=== PATIENT | male | born 1950 | race Caucasian/White ===

== ENCOUNTER 2017-05-20 10:12 | Inpatient (IN) | payer OTHER ==
[~2017-05-20] VITALS: Ht 167.6 cm; Wt 102.3 kg
[2017-05-20 11:15] LABS: BASOPHIL COUNT 0.1 K/uL (0-0.1); EOSINOPHIL (%) 0.7 % (0-5); EOSINOPHIL COUNT 0.1 K/uL (0-0.3); HEMATOCRIT 45.2 % (38.0-50.0); IMMATURE GRANULOCYTE (%) 1.9 % (0.0-0.7); IMMATURE GRANULOCYTE COUNT 0.3 K/uL; LYMPHOCYTE COUNT 1.8 K/uL (1.0-2.8); MCHC 31.4 G/DL (30.0-36.0); MCV 86.1 FL (86-99); MEAN PLAT.VOLUME 11.4 uM^3 (9.0-12.4); MONOCYTE (%) 8.1 % (3-12); MONOCYTE COUNT 1.1 K/uL (0-0.8); NEUTROPHIL (%) 74.9 % (45-76); PLATELET COUNT 336 K/uL (156-360); RBC DIS.WIDTH-CV 14.6 % (11.8-14.6); RBC DIS.WIDTH-SD 46.1 % (39-53); RED BLOOD COUNT 5.25 M/uL (4.00-5.50); WHITE BLOOD COUNT 13.4 K/uL (4.1-10.2)
[2017-05-20 11:19] LABS: ADD MIUA? YES; BILIRUBIN NEGATIVE; BLOOD NEGATIVE; COLOR YELLOW ((YELLOW)); GLUCOSE (STRIP) NEGATIVE; KETONES NEGATIVE; LEUKOCYTES NEGATIVE; NITRITE NEGATIVE; PROTEIN (STRIP) 100; SPECIFIC GRAVITY 1.011 (1.000-1.030)
[2017-05-20 11:23] LABS: CHLORIDE 97 mEq/L (99-109); POTASSIUM 4.4 mEq/L (3.7-5.4); SODIUM 136 mEq/L (136-147)
[2017-05-20 11:24] LABS: BACTERIA NONE SEEN /HPF; EPITHELIAL CELLS NONE SEEN /HPF; HYALINE CASTS 0-5 /LPF; MUCUS NONE SEEN /LPF; RED BLOOD CELLS 0-5 /HPF (0-5); UCUL ADDED? NO; WHITE BLOOD CELLS 0-5 /HPF (0-5)
[2017-05-20 11:25] LABS: GLUCOSE 180 mg/dL (70-99)
[2017-05-20 11:26] LABS: ANION GAP 9 MEQ/L (2-14)
[2017-05-20 11:28] LABS: GFR ESTIMATE (CALCULATED) > 59 mL/min/
[2017-05-20 11:30] LABS: UREA NITROGEN (BUN) 12 mg/dL (9-23)
[2017-05-20] MEDS ORDERED: MONTELUKAST SOD10 MG PO (13:24)
[2017-05-20] MEDS ORDERED: GLIMEPIRIDE2 MG PO ×2 (13:24→13:28)
[2017-05-20] MEDS ORDERED: ELIQUIS5 MG PO (13:25)
[2017-05-20] MEDS ORDERED: METFORMIN HCL500 MG PO (13:25)
[2017-05-20 13:26] LABS: INTER. NORMALIZED RATIO 1.6; PROTHROMBIN TIME 17.9 SEC (10.2-12.9)
[2017-05-20] MEDS ORDERED: LISINOPRIL40 MG PO (13:26)
[2017-05-20] MEDS ORDERED: METOPROLOL SUC100 MG PO (13:26)
[2017-05-20] MEDS ORDERED: LANTUS 10100 UNITS/ SC (13:26)
[2017-05-20] MEDS ORDERED: ATORVASTATIN CA10 MG PO (13:27)
[2017-05-20] MEDS ORDERED: MIRALAX17 GM PO (13:29)
[2017-05-20] MEDS ORDERED: VITAMIN D-32000 UNI2 PO (13:30)
[2017-05-20] MEDS ORDERED: MULTIVITAMIN1 EAC2 PO (13:30)
[2017-05-20] MEDS ORDERED: flovent inhaler IH (13:32)
[2017-05-20 13:35] LABS: TOTAL BILIRUBIN 0.9 mg/dL (0.0-1.0)
[2017-05-20 13:36] LABS: ALKALINE PHOSPHATASE 138 IU/L (3-129)
[2017-05-20 13:38] LABS: DIRECT BILIRUBIN 0.5 mg/dL (0.0-0.3)
[2017-05-20 15:39] VITALS: BP 174/75
[2017-05-20 17:41] LABS: POINT-OF-CARE METER ID UU14117124
[2017-05-20 20:48] VITALS: BP 133/59
[2017-05-20 21:31] LABS: POINT-OF-CARE METER ID UU14117124
[2017-05-20 23:43] VITALS: BP 133/58
[2017-05-21 04:28] VITALS: BP 156/67
[2017-05-21 06:03] LABS: POINT-OF-CARE METER ID UU14117124
[2017-05-21 06:11] LABS: HEMATOCRIT 42.7 % (38.0-50.0); MCH 26.6 PG (29.0-34.0); MCHC 30.4 G/DL (30.0-36.0); MCV 87.3 FL (86-99); MEAN PLAT.VOLUME 11.3 uM^3 (9.0-12.4); PLATELET COUNT 295 K/uL (156-360); RBC DIS.WIDTH-CV 14.7 % (11.8-14.6); RBC DIS.WIDTH-SD 47.4 % (39-53); RED BLOOD COUNT 4.89 M/uL (4.00-5.50); WHITE BLOOD COUNT 11.1 K/uL (4.1-10.2)
[2017-05-21 06:35] LABS: ANION GAP 10 MEQ/L (2-14); CHLORIDE 98 MEQ/L (99-109); GFR ESTIMATE (CALCULATED) > 59 mL/min/; GLUCOSE 185 mg/dL (70-99); POTASSIUM 4.6 MEQ/L (3.7-5.4); SAMPLE HEMOLYSIS CHECK 0; SAMPLE ICTERIC CHECK 0; SAMPLE LIPEMIA CHECK 0; SODIUM 138 MEQ/L (136-147); UREA NITROGEN (BUN) 12 mg/dL (9-23)
[2017-05-21 07:10] VITALS: BP 139/68
[2017-05-21 11:32] VITALS: BP 101/63
[2017-05-21 12:01] LABS: POINT-OF-CARE METER ID UU14117124
[2017-05-21 16:27] VITALS: BP 125/58
[2017-05-21 16:33] LABS: POINT-OF-CARE METER ID UU14117124
[2017-05-21 20:02] VITALS: BP 110/55
[2017-05-21 22:00] LABS: POINT-OF-CARE METER ID UU14149397
[2017-05-21 23:32] VITALS: BP 116/57
[2017-05-22 03:56] VITALS: BP 124/61
[2017-05-22 06:05] LABS: BASOPHIL COUNT 0.1 K/uL (0-0.1); EOSINOPHIL (%) 1.2 % (0-5); EOSINOPHIL COUNT 0.1 K/uL (0-0.3); HEMATOCRIT 38.7 % (38.0-50.0); IMMATURE GRANULOCYTE (%) 2.4 % (0.0-0.7); IMMATURE GRANULOCYTE COUNT 0.2 K/uL; INSTRUMENT ABS NEUTROPHIL CT 4.8 K/uL; LYMPHOCYTE COUNT 1.4 K/uL (1.0-2.8); MCH 27.8 PG (29.0-34.0); MCHC 31.3 G/DL (30.0-36.0); MCV 88.8 FL (86-99); MEAN PLAT.VOLUME 11.2 uM^3 (9.0-12.4); MONOCYTE (%) 10.1 % (3-12); MONOCYTE COUNT 0.7 K/uL (0-0.8); NEUTROPHIL (%) 65.7 % (45-76); NEUTROPHIL COUNT 4.8 K/uL (1.8-6.4); PLATELET COUNT 256 K/uL (156-360); RBC DIS.WIDTH-CV 14.9 % (11.8-14.6); RBC DIS.WIDTH-SD 48.9 % (39-53); RED BLOOD COUNT 4.36 M/uL (4.00-5.50); WHITE BLOOD COUNT 7.2 K/uL (4.1-10.2)
[2017-05-22 06:53] LABS: ANION GAP 7 MEQ/L (2-14); CHLORIDE 101 MEQ/L (99-109); GFR ESTIMATE (CALCULATED) > 59 mL/min/; POTASSIUM 4.3 MEQ/L (3.7-5.4); SAMPLE HEMOLYSIS CHECK 0; SAMPLE ICTERIC CHECK 0; SAMPLE LIPEMIA CHECK 0; SODIUM 141 MEQ/L (136-147); UREA NITROGEN (BUN) 15 mg/dL (9-23)
[2017-05-22 06:59] LABS: GLUCOSE 100 mg/dL (70-99)
[2017-05-22 07:11] LABS: POINT-OF-CARE METER ID UU14208753
[2017-05-22 07:59] VITALS: BP 142/65
[2017-05-22 11:30] LABS: POINT-OF-CARE METER ID UU14208753
[2017-05-22 11:42] VITALS: BP 134/71
[2017-05-22] MEDS ORDERED: BACTRIM,SEPT1 TABLET PO (14:52)
[2017-05-22] MEDS ORDERED: AUGMENTIN875 MG PO (14:52)
== END 2017-05-22 15:47 | disposition home or self-care (01) | DRG 571 ==
LOC: EME 10:12 → 3EAST 12:59 → EDOF 12:59 → ENRESERV 13:00 → 3EAST 15:23
PROVIDERS: Hospitalist; Internal Medicine; Physician Assistant
DX: L02.214 Cutaneous abscess of groin (principal); E11.65 Type 2 diabetes mellitus with hyperglycemia; E78.5 Hyperlipidemia, unspecified; I11.0 Hypertensive heart disease with heart failure; I50.20 Unspecified systolic (congestive) heart failure; L03.314 Cellulitis of groin; I48.2 Chronic atrial fibrillation; I25.10 Atherosclerotic heart disease of native coronary artery without angina pectoris; F17.210 Nicotine dependence, cigarettes, uncomplicated; E66.9 Obesity, unspecified; B35.9 Dermatophytosis, unspecified; R79.89 Other specified abnormal findings of blood chemistry; K76.0 Fatty (change of) liver, not elsewhere classified; K57.30 Diverticulosis of large intestine without perforation or abscess without bleeding; I27.20 Pulmonary hypertension, unspecified; L03.311 Cellulitis of abdominal wall; I70.8 Atherosclerosis of other arteries; I70.0 Atherosclerosis of aorta; D68.9 Coagulation defect, unspecified; Z99.81 Dependence on supplemental oxygen; Z79.4 Long term (current) use of insulin; I25.2 Old myocardial infarction; Z68.36 Body mass index [BMI] 36.0-36.9, adult
CPT/HCPCS: 74177; 80048; 80076; 80202; 81003; 82948; 83605; 85025; 85027; 85610; 87040; 87070; 87075; 87076; 87185; 87205; 93005; 94640; 94640 76; 94799; 99202; 99281; 99285; J1815; J2543; J3370; J7030; J7050

== ENCOUNTER 2017-08-04 09:11 | Inpatient (IN) | payer OTHER ==
[2017-08-04] VITALS (7 sets, daily range): BP systolic 101–137; BP diastolic 61–83
[~2017-08-04] VITALS: Ht 167.6 cm; Wt 96.0 kg
[~2017-08-04 09:11] MED LIST: ATORVASTATIN CA10 MG PO; AUGMENTIN875 MG PO; BACTRIM,SEPT1 TABLET PO; ELIQUIS5 MG PO; FLOVENT 22120 INHALA IH; GLIMEPIRIDE2 MG PO; LANTUS 10100 UNITS/ SC; LISINOPRIL40 MG PO; METFORMIN HCL500 MG PO; METOPROLOL SUC100 MG PO; MIRALAX17 GM PO; MONTELUKAST SOD10 MG PO; MULTIVITAMIN1 EAC2 PO; VITAMIN D-32000 UNI2 PO
[2017-08-04 10:17] LABS: HEMATOCRIT 53.9 % (38.0-50.0); HEMOGLOBIN 16.9 G/DL (12.5-16.6); MCH 28.6 PG (29.0-34.0); MCHC 31.4 G/DL (30.0-36.0); MCV 91.4 FL (86-99); PLATELET COUNT 281 K/uL (156-360); RBC DIS.WIDTH-CV 18.6 % (11.8-14.6); RBC DIS.WIDTH-SD 58.7 % (39-53); WHITE BLOOD COUNT 10.2 K/uL (4.1-10.2)
[2017-08-04 10:21] LABS: CHLORIDE 100 mEq/L (99-109)
[2017-08-04 10:22] LABS: SODIUM 136 mEq/L (136-147)
[2017-08-04 10:23] LABS: GLUCOSE 101 mg/dL (70-99)
[2017-08-04 10:27] LABS: CREATININE 1.7 mg/dL (0.6-1.3); GFR ESTIMATE (CALCULATED) 43 mL/min/ (58.99-99999)
[2017-08-04 10:28] LABS: UREA NITROGEN (BUN) 74 mg/dL (9-23)
[2017-08-04 10:30] LABS: POTASSIUM 6.5 mEq/L (3.7-5.4)
[2017-08-04 11:56] LABS: INTER. NORMALIZED RATIO 2.1
[2017-08-04 11:58] LABS: MAGNESIUM 2.5 mg/dL (1.3-2.7); PTT 34.5 SEC (25-37)
[2017-08-04 12:10] LABS: TROP-I INTERPRETATION NEGATIVE
[2017-08-04 13:00] LABS: THYROTROPIN (TSH) 3.6 MIU/L (0.4-5.5)
[2017-08-04 14:08] LABS: ALBUMIN 3.3 g/dL (3.2-4.8); CHLORIDE 106 mEq/L (99-109); POTASSIUM 5.7 mEq/L (3.7-5.4); SODIUM 139 mEq/L (136-147)
[2017-08-04 14:09] LABS: GLUCOSE 79 mg/dL (70-99)
[2017-08-04 14:11] LABS: TOTAL PROTEIN 6.7 g/dL (6.4-8.3)
[2017-08-04 14:13] LABS: CREATININE 1.7 mg/dL (0.6-1.3); GFR ESTIMATE (CALCULATED) 43 mL/min/ (58.99-99999); TOTAL BILIRUBIN 1.4 mg/dL (0.0-1.0)
[2017-08-04 14:14] LABS: ALKALINE PHOSPHATASE 101 IU/L (3-129); UREA NITROGEN (BUN) 70 mg/dL (9-23)
[2017-08-04 14:16] LABS: AST (GOT) 26 IU/L (2-34); DIRECT BILIRUBIN 0.8 mg/dL (0.0-0.3)
[2017-08-04 14:17] LABS: ALT (GPT) 21 IU/L (3-49)
[2017-08-04] MEDS ORDERED: AMARYL2 MG PO (16:27)
[2017-08-04] MEDS ORDERED: STIOLTO RESPIMAT4 GM IH (16:31)
[2017-08-04] MEDS ORDERED: PROAIR HFA8.5 GM IH (16:31)
[2017-08-04 18:51] LABS: TROP-I INTERPRETATION NEGATIVE; TROPONIN-I 0.12 ng/mL (0.0-0.30)
[2017-08-04 18:54] LABS: CHLORIDE 103 MEQ/L (99-109); CREATININE 1.8 MG/DL (0.6-1.3); GFR ESTIMATE (CALCULATED) 40 mL/min/ (58.99-99999); POTASSIUM 5.6 MEQ/L (3.7-5.4); SODIUM 138 MEQ/L (136-147); UREA NITROGEN (BUN) 72 mg/dL (9-23)
[2017-08-04 19:19] LABS: GLUCOSE 106 mg/dL (70-99)
[2017-08-05] VITALS (23 sets, daily range): BP systolic 77–114; BP diastolic 51–68
[2017-08-05 01:45] LABS: TROP-I INTERPRETATION NEGATIVE
[2017-08-05 05:55] LABS: CHLORIDE 104 MEQ/L (99-109); CREATININE 1.8 MG/DL (0.6-1.3); GFR ESTIMATE (CALCULATED) 40 mL/min/ (58.99-99999); GLUCOSE 120 mg/dL (70-99); SODIUM 137 MEQ/L (136-147); UREA NITROGEN (BUN) 73 mg/dL (9-23)
[2017-08-06] VITALS (24 sets, daily range): BP systolic 78–113; BP diastolic 50–69
[2017-08-06 06:16] LABS: CHLORIDE 105 MEQ/L (99-109); CREATININE 2.1 MG/DL (0.6-1.3); GFR ESTIMATE (CALCULATED) 34 mL/min/ (58.99-99999); GLUCOSE 116 mg/dL (70-99); POTASSIUM 4.9 MEQ/L (3.7-5.4); SODIUM 139 MEQ/L (136-147); UREA NITROGEN (BUN) 77 mg/dL (9-23)
[2017-08-07] VITALS (20 sets, daily range): BP systolic 65–131; BP diastolic 41–73
[2017-08-07 04:50] LABS: BASOPHIL (%) 0.5 % (0-1); EOSINOPHIL (%) 0.6 % (0-5); EOSINOPHIL COUNT 0.1 K/uL (0-0.3); HEMATOCRIT 46.1 % (38.0-50.0); IMMATURE GRANULOCYTE (%) 0.8 % (0.0-0.7); LYMPHOCYTE (%) 11.7 % (15-42); MCHC 31.2 G/DL (30.0-36.0); MCV 92.8 FL (86-99); MONOCYTE (%) 8.6 % (3-12); MONOCYTE COUNT 0.8 K/uL (0-0.8); NEUTROPHIL (%) 77.8 % (45-76); NEUTROPHIL COUNT 6.8 K/uL (1.8-6.4); NRBC (%) 0.2 /100 WBC (0-0); RBC DIS.WIDTH-CV 17.9 % (11.8-14.6); RBC DIS.WIDTH-SD 60.3 % (39-53); RED BLOOD COUNT 4.97 M/uL (4.00-5.50); WHITE BLOOD COUNT 8.7 K/uL (4.1-10.2)
[2017-08-07 04:51] LABS: HEMOGLOBIN 14.4 G/DL (12.5-16.6)
[2017-08-07 05:00] LABS: CHLORIDE 104 mEq/L (99-109); POTASSIUM 4.9 mEq/L (3.7-5.4); SODIUM 139 mEq/L (136-147)
[2017-08-07 05:01] LABS: GLUCOSE 117 mg/dL (70-99)
[2017-08-07 05:05] LABS: CREATININE 1.8 mg/dL (0.6-1.3); GFR ESTIMATE (CALCULATED) 40 mL/min/ (58.99-99999)
[2017-08-07 05:06] LABS: UREA NITROGEN (BUN) 71 mg/dL (9-23)
[2017-08-07 06:09] LABS: PLAT.SUFFICIENCY ADEQUATE
[2017-08-07 06:10] LABS: PLATELET COUNT 179 K/uL (156-360)
[2017-08-08] VITALS (23 sets, daily range): BP systolic 92–129; BP diastolic 55–93
[2017-08-08 08:37] LABS: CHLORIDE 101 MEQ/L (99-109); POTASSIUM 4.6 MEQ/L (3.7-5.4); SODIUM 141 MEQ/L (136-147)
[2017-08-08 08:45] LABS: CREATININE 1.6 MG/DL (0.6-1.3); GFR ESTIMATE (CALCULATED) 46 mL/min/ (58.99-99999); GLUCOSE 127 mg/dL (70-99); UREA NITROGEN (BUN) 62 mg/dL (9-23)
[2017-08-09] VITALS (22 sets, daily range): BP systolic 86–118; BP diastolic 51–79
[2017-08-09 11:19] LABS: DIGOXIN 0.5 ng/mL (0.8-2.0)
[2017-08-09 11:28] LABS: CHLORIDE 98 MEQ/L (99-109); CREATININE 1.3 MG/DL (0.6-1.3); GFR ESTIMATE (CALCULATED) 59 mL/min/ (58.99-99999); GLUCOSE 182 mg/dL (70-99); POTASSIUM 4.6 MEQ/L (3.7-5.4); SODIUM 144 MEQ/L (136-147); UREA NITROGEN (BUN) 57 mg/dL (9-23)
[2017-08-10] VITALS (12 sets, daily range): BP systolic 90–131; BP diastolic 47–80
[2017-08-10 06:20] LABS: CHLORIDE 98 MEQ/L (99-109); CREATININE 1.2 MG/DL (0.6-1.3); GFR ESTIMATE (CALCULATED) > 59 mL/min/ (58.99-99999); GLUCOSE 125 mg/dL (70-99); POTASSIUM 4.3 MEQ/L (3.7-5.4); SODIUM 144 MEQ/L (136-147); UREA NITROGEN (BUN) 53 mg/dL (9-23)
[2017-08-11 04:27] VITALS: BP 103/61
[2017-08-11 07:10] VITALS: BP 107/69
[2017-08-11 10:45] LABS: CARBON DIOXIDE (BICARBONATE) > 40.0 MEQ/L (20-31); CHLORIDE 91 MEQ/L (99-109); CREATININE 1.2 MG/DL (0.6-1.3); GFR ESTIMATE (CALCULATED) > 59 mL/min/ (58.99-99999); GLUCOSE 189 mg/dL (70-99); POTASSIUM 4.8 MEQ/L (3.7-5.4); SODIUM 145 MEQ/L (136-147); UREA NITROGEN (BUN) 50 mg/dL (9-23)
[2017-08-11 11:50] VITALS: BP 119/71
[2017-08-11 12:05] VITALS: BP 119/71
[2017-08-11 16:50] VITALS: BP 125/83
[2017-08-11 20:35] VITALS: BP 128/83
[2017-08-12 00:30] VITALS: BP 128/58
[2017-08-12 04:48] VITALS: BP 132/79
[2017-08-12 06:02] LABS: CHLORIDE 91 MEQ/L (99-109); CREATININE 1.3 MG/DL (0.6-1.3); GFR ESTIMATE (CALCULATED) 59 mL/min/ (58.99-99999); GLUCOSE 122 mg/dL (70-99); POTASSIUM 4.2 MEQ/L (3.7-5.4); SODIUM 145 MEQ/L (136-147); UREA NITROGEN (BUN) 52 mg/dL (9-23)
[2017-08-12 06:03] LABS: CARBON DIOXIDE (BICARBONATE) > 40.0 MEQ/L (20-31)
[2017-08-12 08:22] VITALS: BP 140/83
[2017-08-12 15:47] VITALS: BP 120/73
[2017-08-12 16:19] VITALS: BP 120/73
[2017-08-12 20:20] VITALS: BP 134/86
[2017-08-13] VITALS (9 sets, daily range): BP systolic 108–144; BP diastolic 65–87
[2017-08-13 05:59] LABS: CHLORIDE 91 MEQ/L (99-109); GFR ESTIMATE (CALCULATED) > 59 mL/min/ (58.99-99999); GLUCOSE 136 mg/dL (70-99); POTASSIUM 4.3 MEQ/L (3.7-5.4); SODIUM 145 MEQ/L (136-147); UREA NITROGEN (BUN) 47 mg/dL (9-23)
[2017-08-13 06:03] LABS: CARBON DIOXIDE (BICARBONATE) > 40.0 MEQ/L (20-31)
[2017-08-13 06:32] LABS: DIGOXIN 0.7 ng/mL (0.8-2.0)
[2017-08-13 08:20] LABS: BICARBONATE 51.9 mEq/L (22-26); CARBOXY HGB 2.8 % (0-5); COMMENTS - BLOOD GASES A+C+; DEVICE NC; METHEMOGLOBIN 1.6 % (0-1.5); O2 FLOW 2 L/MIN; PCO2 94 mm Hg (35-45); PO2 76 mm Hg (80-100); SITE RR; TOTAL RESP RATE 16 resp/min; pH 7.35 (7.35-7.45)
[2017-08-13 15:49] LABS: BASE EXCESS 17.6 mEq/L (-3 to +3); BICARBONATE 53.2 mEq/L (22-26); CARBOXY HGB 2.6 % (0-5); COMMENTS - BLOOD GASES A+C+; DEVICE NC; METHEMOGLOBIN 1.4 % (0-1.5); O2 FLOW 5 L/MIN; PCO2 127 mm Hg (35-45); PO2 79 mm Hg (80-100); SITE RR
[2017-08-13 15:50] LABS: pH 7.23 (7.35-7.45)
[2017-08-13 16:14] LABS: BASOPHIL (%) 0.6 % (0-1); BASOPHIL COUNT 0.1 K/uL (0-0.1); EOSINOPHIL (%) 0.5 % (0-5); HEMATOCRIT 57.7 % (38.0-50.0); IMMATURE GRANULOCYTE (%) 1.4 % (0.0-0.7); LYMPHOCYTE (%) 7.2 % (15-42); LYMPHOCYTE COUNT 0.6 K/uL (1.0-2.8); MCH 28.5 PG (29.0-34.0); MCHC 29.1 G/DL (30.0-36.0); MONOCYTE COUNT 0.3 K/uL (0-0.8); NEUTROPHIL (%) 87.3 % (45-76); NEUTROPHIL COUNT 7.5 K/uL (1.8-6.4); PLATELET COUNT 186 K/uL (156-360); RBC DIS.WIDTH-CV 18.2 % (11.8-14.6); RBC DIS.WIDTH-SD 62.6 % (39-53); RED BLOOD COUNT 5.89 M/uL (4.00-5.50); WHITE BLOOD COUNT 8.6 K/uL (4.1-10.2)
[2017-08-13 16:18] LABS: CHLORIDE 92 MEQ/L (99-109); CREATININE 1.4 MG/DL (0.6-1.3); GFR ESTIMATE (CALCULATED) 54 mL/min/ (58.99-99999); GLUCOSE 192 mg/dL (70-99); SODIUM 142 MEQ/L (136-147); UREA NITROGEN (BUN) 50 mg/dL (9-23)
[2017-08-13 16:19] LABS: CARBON DIOXIDE (BICARBONATE) > 40.0 MEQ/L (20-31)
[2017-08-13 16:23] LABS: HEMOGLOBIN 16.8 G/DL (12.5-16.6)
[2017-08-13 17:55] LABS: BASE EXCESS 17.4 mEq/L (-3 to +3); BICARBONATE 51.2 mEq/L (22-26); CARBOXY HGB 2.3 % (0-5); METHEMOGLOBIN 1.5 % (0-1.5)
[2017-08-13 17:56] LABS: COMMENTS - BLOOD GASES A+C+; DEVICE MASK VENT; FI02 30 %; MODE SPONT NIV; PCO2 109 mm Hg (35-45); PEEP 5 CM/H20; PO2 44 mm Hg (80-100); PRES. SUPPORT 10 CM/H2O; SITE LR; TOTAL RESP RATE 16 resp/min; pH 7.28 (7.35-7.45)
[2017-08-13 21:56] LABS: BASE EXCESS 19.4 mEq/L (-3 to +3); BICARBONATE 52.9 mEq/L (22-26); CARBOXY HGB 2.7 % (0-5); METHEMOGLOBIN 1.4 % (0-1.5); PCO2 110 mm Hg (35-45)
[2017-08-13 21:57] LABS: DEVICE VENT; FI02 40 %; MODE SPON; PEEP 5 CM/H20; PO2 66 mm Hg (80-100); PRES. SUPPORT 10 CM/H2O; SITE LR; TOTAL RESP RATE 15 resp/min; pH 7.29 (7.35-7.45)
[2017-08-14] VITALS (23 sets, daily range): BP systolic 92–133; BP diastolic 52–81
[2017-08-14 06:02] LABS: BASE EXCESS 21.5 mEq/L (-3 to +3); BICARBONATE 53.6 mEq/L (22-26); CARBOXY HGB 2.9 % (0-5); METHEMOGLOBIN 1.4 % (0-1.5); PO2 57 mm Hg (80-100); pH 7.35 (7.35-7.45)
[2017-08-14 06:03] LABS: COMMENTS - BLOOD GASES C+; DEVICE VENT; FI02 30 %; MODE SPON; PCO2 97 mm Hg (35-45); PEEP 5 CM/H20; PRES. SUPPORT 10 CM/H2O; SITE LB; TOTAL RESP RATE 16 resp/min
[2017-08-14 06:35] LABS: BASOPHIL (%) 0.1 % (0-1); EOSINOPHIL (%) 0 % (0-5); HEMATOCRIT 51.6 % (38.0-50.0); HEMOGLOBIN 14.9 G/DL (12.5-16.6); IMMATURE GRANULOCYTE (%) 1.2 % (0.0-0.7); LYMPHOCYTE (%) 7.4 % (15-42); LYMPHOCYTE COUNT 0.5 K/uL (1.0-2.8); MCH 27.9 PG (29.0-34.0); MCHC 28.9 G/DL (30.0-36.0); MCV 96.6 FL (86-99); MONOCYTE (%) 5.6 % (3-12); MONOCYTE COUNT 0.4 K/uL (0-0.8); NEUTROPHIL (%) 85.7 % (45-76); NEUTROPHIL COUNT 5.9 K/uL (1.8-6.4); PLATELET COUNT 180 K/uL (156-360); RBC DIS.WIDTH-CV 17.5 % (11.8-14.6); RBC DIS.WIDTH-SD 61.3 % (39-53); RED BLOOD COUNT 5.34 M/uL (4.00-5.50); WHITE BLOOD COUNT 6.9 K/uL (4.1-10.2)
[2017-08-14 07:12] LABS: CHLORIDE 92 MEQ/L (99-109); CREATININE 1.3 MG/DL (0.6-1.3); GFR ESTIMATE (CALCULATED) 59 mL/min/ (58.99-99999); GLUCOSE 170 mg/dL (70-99); POTASSIUM 4.7 MEQ/L (3.7-5.4); SODIUM 146 MEQ/L (136-147); UREA NITROGEN (BUN) 57 mg/dL (9-23)
[2017-08-14 07:40] LABS: CARBON DIOXIDE (BICARBONATE) > 40.0 MEQ/L (20-31)
[2017-08-14 07:41] LABS: MAGNESIUM 1.5 mg/dl (1.3-2.7)
[2017-08-15] VITALS (22 sets, daily range): BP systolic 82–135; BP diastolic 56–89
[2017-08-16] VITALS (11 sets, daily range): BP systolic 100–165; BP diastolic 62–81
[2017-08-16 10:35] LABS: CHLORIDE 89 MEQ/L (99-109); GFR ESTIMATE (CALCULATED) > 59 mL/min/ (58.99-99999); GLUCOSE 131 mg/dL (70-99); POTASSIUM 4.4 MEQ/L (3.7-5.4); SODIUM 145 MEQ/L (136-147); UREA NITROGEN (BUN) 49 mg/dL (9-23)
[2017-08-16 10:38] LABS: CARBON DIOXIDE (BICARBONATE) > 40.0 MEQ/L (20-31)
[2017-08-17 04:33] VITALS: BP 156/82
[2017-08-17 05:59] LABS: BASOPHIL (%) 0.8 % (0-1); BASOPHIL COUNT 0.1 K/uL (0-0.1); EOSINOPHIL (%) 1.3 % (0-5); EOSINOPHIL COUNT 0.1 K/uL (0-0.3); HEMATOCRIT 50.4 % (38.0-50.0); IMMATURE GRANULOCYTE (%) 0.9 % (0.0-0.7); LYMPHOCYTE (%) 16.2 % (15-42); LYMPHOCYTE COUNT 1.4 K/uL (1.0-2.8); MCH 28.5 PG (29.0-34.0); MCHC 29.8 G/DL (30.0-36.0); MCV 95.6 FL (86-99); MONOCYTE (%) 7.5 % (3-12); MONOCYTE COUNT 0.7 K/uL (0-0.8); NEUTROPHIL (%) 73.3 % (45-76); NEUTROPHIL COUNT 6.4 K/uL (1.8-6.4); PLATELET COUNT 146 K/uL (156-360); RBC DIS.WIDTH-CV 16.7 % (11.8-14.6); RBC DIS.WIDTH-SD 58.5 % (39-53); RED BLOOD COUNT 5.27 M/uL (4.00-5.50); WHITE BLOOD COUNT 8.8 K/uL (4.1-10.2)
[2017-08-17 06:24] LABS: ALBUMIN 3.2 G/DL (3.2-4.8); ALKALINE PHOSPHATASE 116 IU/L (3-129); ALT (GPT) 29 IU/L (3-49); AST (GOT) 27 IU/L (2-34); CHLORIDE 86 MEQ/L (99-109); CREATININE 1.1 MG/DL (0.6-1.3); GFR ESTIMATE (CALCULATED) > 59 mL/min/ (58.99-99999); GLUCOSE 107 mg/dL (70-99); POTASSIUM 4.4 MEQ/L (3.7-5.4); SODIUM 145 MEQ/L (136-147); TOTAL BILIRUBIN 1.7 MG/DL (0.0-1.0); TOTAL PROTEIN 6.5 G/DL (6.4-8.3); UREA NITROGEN (BUN) 45 mg/dL (9-23)
[2017-08-17 06:26] LABS: CARBON DIOXIDE (BICARBONATE) > 40.0 MEQ/L (20-31)
[2017-08-17 07:18] VITALS: BP 149/79
[2017-08-17 12:00] VITALS: BP 177/98
[2017-08-17 14:38] LABS: APPEARANCE CLEAR ((CLEAR)); BILIRUBIN NEGATIVE; BLOOD SMALL; COLOR YELLOW ((YELLOW)); GLUCOSE (STRIP) NEGATIVE; KETONES NEGATIVE; LEUKOCYTES NEGATIVE; NITRITE NEGATIVE; PROTEIN (STRIP) NEGATIVE; SPECIFIC GRAVITY 1.006 (1.000-1.030); UROBILINOGEN 0.2 MG/DL (0.2-1.0)
[2017-08-17 15:25] LABS: BACTERIA NONE SEEN /HPF; EPITHELIAL CELLS NONE SEEN /HPF; MUCUS TRACE /LPF; RED BLOOD CELLS 0-5 /HPF (0-5); UCUL ADDED? NO; WHITE BLOOD CELLS 0-5 /HPF (0-5)
[2017-08-17 16:25] VITALS: BP 139/90
[2017-08-17 19:49] VITALS: BP 143/82
[2017-08-18] VITALS (7 sets, daily range): BP systolic 122–141; BP diastolic 70–82
[2017-08-18 05:11] LABS: BASOPHIL (%) 0.6 % (0-1); BASOPHIL COUNT 0.1 K/uL (0-0.1); EOSINOPHIL (%) 0.9 % (0-5); EOSINOPHIL COUNT 0.1 K/uL (0-0.3); HEMATOCRIT 49.8 % (38.0-50.0); HEMOGLOBIN 14.5 G/DL (12.5-16.6); LYMPHOCYTE (%) 10.8 % (15-42); MCH 27.8 PG (29.0-34.0); MCHC 29.1 G/DL (30.0-36.0); MCV 95.4 FL (86-99); MONOCYTE (%) 8.1 % (3-12); MONOCYTE COUNT 0.8 K/uL (0-0.8); NEUTROPHIL (%) 78.6 % (45-76); NEUTROPHIL COUNT 7.4 K/uL (1.8-6.4); PLATELET COUNT 157 K/uL (156-360); RBC DIS.WIDTH-CV 16.4 % (11.8-14.6); RBC DIS.WIDTH-SD 57.7 % (39-53); RED BLOOD COUNT 5.22 M/uL (4.00-5.50); WHITE BLOOD COUNT 9.4 K/uL (4.1-10.2)
[2017-08-18 05:46] LABS: ALBUMIN 3.2 G/DL (3.2-4.8); ALKALINE PHOSPHATASE 112 IU/L (3-129); ALT (GPT) 27 IU/L (3-49); AST (GOT) 26 IU/L (2-34); CHLORIDE 86 MEQ/L (99-109); CREATININE 1.1 MG/DL (0.6-1.3); GFR ESTIMATE (CALCULATED) > 59 mL/min/ (58.99-99999); GLUCOSE 82 mg/dL (70-99); POTASSIUM 4.2 MEQ/L (3.7-5.4); SODIUM 142 MEQ/L (136-147); TOTAL BILIRUBIN 1.5 MG/DL (0.0-1.0); TOTAL PROTEIN 6.5 G/DL (6.4-8.3); UREA NITROGEN (BUN) 43 mg/dL (9-23)
[2017-08-18 05:47] LABS: CARBON DIOXIDE (BICARBONATE) > 40.0 MEQ/L (20-31)
[2017-08-18 08:40] LABS: INTER. NORMALIZED RATIO 1.5
[2017-08-18 08:43] LABS: PTT 36.6 SEC (25-37)
[2017-08-18 10:51] LABS: TYPE OF FLUID THORACENTESIS
[2017-08-18 11:16] LABS: LACTATE DEHYDROGENASE 334 IU/L (20-246)
[2017-08-18 11:19] LABS: HEMOGLOBIN A1c (GLYCOHEMOGLOB) 6.3 % (Below 5.7)
[2017-08-18 11:27] LABS: APPEARANCE HAZY-YELLOW; BODY FLUID EOSINOPHILS 0 % (0-25); BODY FLUID RBC'S 7000 /MM^3 (0-100); BODY FLUID WBC'S 596 /MM^3 (0-500); MONONUCLEAR WBC'S 76 %; POLYNUCLEAR WBC'S 24 % (0-25)
[2017-08-18 11:41] LABS: BODY FLUID GLUCOSE 126 MG/DL; BODY FLUID LDH 83 IU/L; BODY FLUID PROTEIN < 3.0 G/DL
[2017-08-19] VITALS (7 sets, daily range): BP systolic 122–140; BP diastolic 75–94
[2017-08-19 06:37] LABS: BASOPHIL (%) 0.8 % (0-1); BASOPHIL COUNT 0.1 K/uL (0-0.1); EOSINOPHIL COUNT 0.1 K/uL (0-0.3); HEMATOCRIT 49.6 % (38.0-50.0); HEMOGLOBIN 14.5 G/DL (12.5-16.6); LYMPHOCYTE (%) 13.6 % (15-42); LYMPHOCYTE COUNT 1.1 K/uL (1.0-2.8); MCHC 29.2 G/DL (30.0-36.0); MCV 95.9 FL (86-99); MONOCYTE (%) 8.6 % (3-12); MONOCYTE COUNT 0.7 K/uL (0-0.8); NEUTROPHIL COUNT 6.3 K/uL (1.8-6.4); PLATELET COUNT 159 K/uL (156-360); RBC DIS.WIDTH-CV 16.7 % (11.8-14.6); RBC DIS.WIDTH-SD 59.1 % (39-53); RED BLOOD COUNT 5.17 M/uL (4.00-5.50); WHITE BLOOD COUNT 8.4 K/uL (4.1-10.2)
[2017-08-19 07:16] LABS: CHLORIDE 88 MEQ/L (99-109); CREATININE 0.9 MG/DL (0.6-1.3); GFR ESTIMATE (CALCULATED) > 59 mL/min/ (58.99-99999); GLUCOSE 122 mg/dL (70-99); POTASSIUM 4.5 MEQ/L (3.7-5.4); SODIUM 143 MEQ/L (136-147); UREA NITROGEN (BUN) 41 mg/dL (9-23)
[2017-08-19 07:22] LABS: CARBON DIOXIDE (BICARBONATE) > 40.0 MEQ/L (20-31)
[2017-08-20 04:07] VITALS: BP 134/93
[2017-08-20 06:45] LABS: BASOPHIL (%) 0.8 % (0-1); BASOPHIL COUNT 0.1 K/uL (0-0.1); EOSINOPHIL (%) 0.6 % (0-5); EOSINOPHIL COUNT 0.1 K/uL (0-0.3); HEMATOCRIT 52.4 % (38.0-50.0); HEMOGLOBIN 15.1 G/DL (12.5-16.6); IMMATURE GRANULOCYTE (%) 1.1 % (0.0-0.7); LYMPHOCYTE (%) 12.3 % (15-42); LYMPHOCYTE COUNT 1.2 K/uL (1.0-2.8); MCH 27.7 PG (29.0-34.0); MCHC 28.8 G/DL (30.0-36.0); MCV 96.1 FL (86-99); MONOCYTE (%) 7.7 % (3-12); MONOCYTE COUNT 0.7 K/uL (0-0.8); NEUTROPHIL (%) 77.5 % (45-76); NEUTROPHIL COUNT 7.4 K/uL (1.8-6.4); PLATELET COUNT 176 K/uL (156-360); RBC DIS.WIDTH-CV 16.7 % (11.8-14.6); RBC DIS.WIDTH-SD 59.2 % (39-53); RED BLOOD COUNT 5.45 M/uL (4.00-5.50); WHITE BLOOD COUNT 9.5 K/uL (4.1-10.2)
[2017-08-20 07:06] LABS: CHLORIDE 87 MEQ/L (99-109); CREATININE 0.9 MG/DL (0.6-1.3); GFR ESTIMATE (CALCULATED) > 59 mL/min/ (58.99-99999); GLUCOSE 121 mg/dL (70-99); POTASSIUM 4.8 MEQ/L (3.7-5.4); SODIUM 143 MEQ/L (136-147); UREA NITROGEN (BUN) 36 mg/dL (9-23)
[2017-08-20 07:08] LABS: CARBON DIOXIDE (BICARBONATE) > 40.0 MEQ/L (20-31)
[2017-08-20 07:38] VITALS: BP 149/78
[2017-08-20 12:05] VITALS: BP 152/88
[2017-08-20 12:07] LABS: BASE EXCESS 24.8 mEq/L (-3 to +3); BICARBONATE 56.4 mEq/L (22-26); CARBOXY HGB 3.2 % (0-5); METHEMOGLOBIN 1.2 % (0-1.5); PCO2 91 mm Hg (35-45); PO2 40 mm Hg (80-100)
[2017-08-20 12:08] LABS: DEVICE NC; O2 FLOW 4 L/MIN; SITE RR
[2017-08-20 12:55] LABS: DIGOXIN 0.8 ng/mL (0.8-2.0)
[2017-08-20 16:21] VITALS: BP 131/65
[2017-08-20 23:54] VITALS: BP 136/76
[2017-08-21 06:40] LABS: BASOPHIL (%) 1.1 % (0-1); BASOPHIL COUNT 0.1 K/uL (0-0.1); EOSINOPHIL (%) 1.3 % (0-5); EOSINOPHIL COUNT 0.1 K/uL (0-0.3); HEMATOCRIT 50.4 % (38.0-50.0); HEMOGLOBIN 14.4 G/DL (12.5-16.6); IMMATURE GRANULOCYTE (%) 0.7 % (0.0-0.7); LYMPHOCYTE (%) 16.4 % (15-42); LYMPHOCYTE COUNT 1.2 K/uL (1.0-2.8); MCH 28.2 PG (29.0-34.0); MCHC 28.6 G/DL (30.0-36.0); MCV 98.8 FL (86-99); MONOCYTE (%) 10.8 % (3-12); MONOCYTE COUNT 0.8 K/uL (0-0.8); NEUTROPHIL (%) 69.7 % (45-76); NEUTROPHIL COUNT 5.2 K/uL (1.8-6.4); PLATELET COUNT 167 K/uL (156-360); RBC DIS.WIDTH-CV 16.8 % (11.8-14.6); RBC DIS.WIDTH-SD 60.8 % (39-53); WHITE BLOOD COUNT 7.4 K/uL (4.1-10.2)
[2017-08-21 07:25] LABS: ALBUMIN 3.2 G/DL (3.2-4.8); ALKALINE PHOSPHATASE 128 IU/L (3-129); ALT (GPT) 25 IU/L (3-49); AST (GOT) 24 IU/L (2-34); CHLORIDE 88 MEQ/L (99-109); CREATININE 1.1 MG/DL (0.6-1.3); GFR ESTIMATE (CALCULATED) > 59 mL/min/ (58.99-99999); GLUCOSE 102 mg/dL (70-99); POTASSIUM 4.2 MEQ/L (3.7-5.4); SODIUM 147 MEQ/L (136-147); TOTAL BILIRUBIN 1.4 MG/DL (0.0-1.0); TOTAL PROTEIN 6.5 G/DL (6.4-8.3); UREA NITROGEN (BUN) 34 mg/dL (9-23)
[2017-08-21 07:45] LABS: CARBON DIOXIDE (BICARBONATE) > 40.0 MEQ/L (20-31)
[2017-08-21 08:28] VITALS: BP 131/69
[2017-08-21 15:59] VITALS: BP 132/70
[2017-08-22 00:16] VITALS: BP 100/59
[2017-08-22 07:33] VITALS: BP 140/76
[2017-08-22 16:09] VITALS: BP 137/72
[2017-08-23] VITALS: BP 126/68
[2017-08-23 07:46] VITALS: BP 116/60
[2017-08-23 20:55] VITALS: BP 122/67
[2017-08-24 00:21] VITALS: BP 122/65
[2017-08-24 08:07] VITALS: BP 129/82
[2017-08-24 16:17] VITALS: BP 125/80
[2017-08-25] VITALS: BP 126/70
[2017-08-25 07:13] VITALS: BP 136/87
[2017-08-25 15:12] VITALS: BP 130/67
[2017-08-25 23:54] VITALS: BP 120/65
[2017-08-26 07:55] VITALS: BP 137/59
[2017-08-26 15:48] VITALS: BP 118/64
[2017-08-27 00:23] VITALS: BP 138/64
[2017-08-27 07:50] VITALS: BP 134/68
[2017-08-27] MEDS ORDERED: NICOTINE PATCH1 EAC2 TD (12:24)
[2017-08-27] MEDS ORDERED: DIGOXIN125 MCG PO (12:24)
[2017-08-27] MEDS ORDERED: CORDARONE200 MG PO (12:24)
[2017-08-27] MEDS ORDERED: DUONEB 2.5-0.5 M3 ML AEROSOL (12:24)
[2017-08-27] MEDS ORDERED: TRAZODONE HCL50 MG PO (12:25)
[2017-08-27] MEDS ORDERED: METOPROLOL SUCC50 MG PO (12:25)
[2017-08-27] MEDS ORDERED: LISINOPRIL5 MG PO (12:25)
[2017-08-27] MEDS ORDERED: BUMETANIDE1 MG PO (12:26)
[2017-08-27] MEDS ORDERED: LANTUS 10100 UNITS/ SC (12:30)
== END 2017-08-27 14:15 | DRG 682 ==
LOC: EME 09:11 → EDOF 12:35 → 4EAST 12:35 → 4WEST 12:35 → 5SOUTH 12:35 → ENRESERV 12:37 → CANRESERV 12:37 → EDOF 13:19 → ENRESERV 14:28 → 4WEST 16:39 → ENRESERV 08-10 17:23 → 4WEST 08-10 20:02 → ENRESERV 08-10 20:07 → CANRESERV 08-10 20:07 → ENRESERV 08-10 20:58 → 4EAST 08-10 22:10 → 4WEST 08-13 16:09 → ENRESERV 08-16 04:55 → 4EAST 08-16 05:46 → ENRESERV 08-18 15:26 → 5SOUTH 08-18 17:55
PROVIDERS: Emergency Medicine; Hospitalist; Internal Medicine; Internal Medicine Cardiovascular Disease; Internal Medicine Critical Care Medicine; Internal Medicine Pulmonary Disease; Physician Assistant Medical; Radiology Diagnostic Radiology; Student in an Organized Health Care Education/Training Program; Surgery
PROC: 0W993ZX Drainage of Right Pleural Cavity, Percutaneous Approach, Diagnostic (ICD-10-PCS; principal; 2017-08-18)
DX: N17.9 Acute kidney failure, unspecified (principal); I50.23 Acute on chronic systolic (congestive) heart failure; J96.21 Acute and chronic respiratory failure with hypoxia; J18.9 Pneumonia, unspecified organism; I42.8 Other cardiomyopathies; R18.8 Other ascites; J90 Pleural effusion, not elsewhere classified; Z51.5 Encounter for palliative care; Z66 Do not resuscitate; J98.11 Atelectasis; I13.0 Hypertensive heart and chronic kidney disease with heart failure and stage 1 through stage 4 chronic kidney disease, or unspecified chronic kidney disease; E87.4 Mixed disorder of acid-base balance; N18.9 Chronic kidney disease, unspecified; I48.2 Chronic atrial fibrillation; E66.9 Obesity, unspecified; F17.210 Nicotine dependence, cigarettes, uncomplicated; E87.5 Hyperkalemia; E11.22 Type 2 diabetes mellitus with diabetic chronic kidney disease; T50.2X5A Adverse effect of carbonic-anhydrase inhibitors, benzothiadiazides and other diuretics, initial encounter; K74.60 Unspecified cirrhosis of liver; I45.10 Unspecified right bundle-branch block; E86.1 Hypovolemia; E78.5 Hyperlipidemia, unspecified; E11.51 Type 2 diabetes mellitus with diabetic peripheral angiopathy without gangrene; I44.30 Unspecified atrioventricular block; I95.9 Hypotension, unspecified; R91.1 Solitary pulmonary nodule; J44.9 Chronic obstructive pulmonary disease, unspecified; Z60.2 Problems related to living alone; Z68.39 Body mass index [BMI] 39.0-39.9, adult; Z99.81 Dependence on supplemental oxygen; Z79.4 Long term (current) use of insulin; Z79.01 Long term (current) use of anticoagulants; Z75.1 Person awaiting admission to adequate facility elsewhere
CPT/HCPCS: 36600; 71045; 71046; 71250; 76770; 76942; 80048; 80048 91; 80053; 80076; 80162; 81003; 82140; 82330; 82800; 82803; 82945; 82947 91; 82948; 83036; 83605; 83615; 83615 91; 83735; 83880; 84100; 84155; 84157; 84443; 84484; 85025; 85027; 85610; 85730; 86850; 86900; 86901; 87040; 87070; 87075; 87116; 87205; 87206; 87641; 88108; 88305; 89051; 93005; 93306; 94002; 94003; 94640; 94640 76; 94760; 94799; 97530 GO; 97530 GP; 99202; 99281; 99285; J0610; J1160; J1250; J1450; J1630; J1815; J1940; J2060; J2260; J2405; J2930; J7030; J7050; J7060

== ENCOUNTER → 2017-09-08 | Outpatient (CLI) | payer OTHER ==
[~2017-09-08] MED LIST changes: +AMARYL2 MG PO; +BUMETANIDE1 MG PO; +CORDARONE200 MG PO; +DIGOXIN125 MCG PO; +DUONEB 2.5-0.5 M3 ML AEROSOL; +LISINOPRIL5 MG PO; +METOPROLOL SUCC50 MG PO; +NICOTINE PATCH1 EAC2 TD; +PROAIR HFA8.5 GM IH; +STIOLTO RESPIMAT4 GM IH; +TRAZODONE HCL50 MG PO
== END ==
LOC: RAD 10:49 → EDSTATUS 11:00 → RAD 11:00
PROC: 0WJG3ZZ Inspection of Peritoneal Cavity, Percutaneous Approach (ICD-10-PCS; principal; 2017-09-08)
DX: J90 Pleural effusion, not elsewhere classified (principal); Z53.09 Procedure and treatment not carried out because of other contraindication
CPT/HCPCS: 76604

== ENCOUNTER 2018-02-05 09:25 | Inpatient (IN) | payer OTHER ==
[~2018-02-05] VITALS: Ht 167.6 cm; Wt 95.5 kg
[~2018-02-05 09:25] MED LIST changes: -ATORVASTATIN CA10 MG PO; +LIPITOR40 MG PO
[2018-02-05 10:19] LABS: HEMATOCRIT 40.1 % (38.0-50.0); HEMOGLOBIN 12.5 G/DL (12.5-16.6); MCHC 31.2 G/DL (30.0-36.0); MCV 77.1 FL (86-99); PLATELET COUNT 584 K/uL (156-360); RBC DIS.WIDTH-CV 19.1 % (11.8-14.6); RBC DIS.WIDTH-SD 49.1 % (39-53); WHITE BLOOD COUNT 16.1 K/uL (4.1-10.2)
[2018-02-05 10:31] LABS: CHLORIDE 100 mEq/L (99-109); POTASSIUM 5.9 mEq/L (3.7-5.4); SODIUM 134 mEq/L (136-147)
[2018-02-05 10:32] LABS: GLUCOSE 132 mg/dL (70-99)
[2018-02-05 10:36] LABS: CREATININE 1.4 mg/dL (0.6-1.3); GFR ESTIMATE (CALCULATED) 54 mL/min/ (58.99-99999)
[2018-02-05 10:37] LABS: UREA NITROGEN (BUN) 38 mg/dL (9-23)
[2018-02-05 10:39] LABS: TROP-I INTERPRETATION NEGATIVE; TROPONIN-I 0.08 ng/mL (0.0-0.30)
[2018-02-05 11:45] VITALS: BP 98/34
[2018-02-05 12:03] LABS: ALBUMIN 3.5 g/dL (3.2-4.8)
[2018-02-05 12:04] LABS: MAGNESIUM 2.1 mg/dL (1.3-2.7)
[2018-02-05 12:06] LABS: TOTAL PROTEIN 8.1 g/dL (6.4-8.3)
[2018-02-05 12:08] LABS: TOTAL BILIRUBIN 1.6 mg/dL (0.0-1.0)
[2018-02-05 12:09] LABS: ALKALINE PHOSPHATASE 179 IU/L (3-129)
[2018-02-05 12:11] LABS: AST (GOT) 153 IU/L (2-34); DIRECT BILIRUBIN 0.9 mg/dL (0.0-0.3)
[2018-02-05 12:12] LABS: ALT (GPT) 133 IU/L (3-49)
[2018-02-05 12:38] LABS: DIGOXIN < 0.3 ng/mL (0.8-2.0)
[2018-02-05] MEDS ORDERED: GLUCOPHAGE500 MG PO (13:47)
[2018-02-05] MEDS ORDERED: VITAMIN D32000 UNI1 PO (13:48)
[2018-02-05] MEDS ORDERED: ZYRTEC10 M3 PO (13:48)
[2018-02-05] MEDS ORDERED: ZESTRIL5 MG PO (13:50)
[2018-02-05 14:11] VITALS: BP 126/71
[2018-02-05 17:27] LABS: TROP-I INTERPRETATION NEGATIVE
[2018-02-05 20:59] VITALS: BP 113/73
[2018-02-06] VITALS (29 sets, daily range): BP systolic 88–163; BP diastolic 49–86
[2018-02-06 00:10] LABS: TROP-I INTERPRETATION NEGATIVE; TROPONIN-I 0.07 ng/mL (0.0-0.30)
[2018-02-06 00:25] LABS: CHLORIDE 99 mEq/L (99-109); PTT 34.5 SEC (25-37); SODIUM 133 mEq/L (136-147)
[2018-02-06 00:27] LABS: GLUCOSE 137 mg/dL (70-99)
[2018-02-06 00:29] LABS: INTER. NORMALIZED RATIO 3.9
[2018-02-06 00:31] LABS: UREA NITROGEN (BUN) 49 mg/dL (9-23)
[2018-02-06 01:02] LABS: CREATININE 2.1 mg/dL (0.6-1.3); GFR ESTIMATE (CALCULATED) 34 mL/min/ (58.99-99999)
[2018-02-06 01:03] LABS: POTASSIUM 7.4 mEq/L (3.7-5.4)
[2018-02-06 01:08] LABS: HEMATOCRIT 38.2 % (38.0-50.0); HEMOGLOBIN 11.7 G/DL (12.5-16.6); MCH 24.2 PG (29.0-34.0); MCHC 30.6 G/DL (30.0-36.0); MCV 78.9 FL (86-99); NRBC (%) 0.2 /100 WBC (0-0); PLATELET COUNT 545 K/uL (156-360); RBC DIS.WIDTH-CV 19.1 % (11.8-14.6); RBC DIS.WIDTH-SD 51.9 % (39-53); RED BLOOD COUNT 4.84 M/uL (4.00-5.50); WHITE BLOOD COUNT 16.7 K/uL (4.1-10.2)
[2018-02-06 02:20] LABS: CHLORIDE 103 mEq/L (99-109); SODIUM 138 mEq/L (136-147)
[2018-02-06 02:22] LABS: GLUCOSE 129 mg/dL (70-99)
[2018-02-06 02:26] LABS: CREATININE 1.8 mg/dL (0.6-1.3); GFR ESTIMATE (CALCULATED) 40 mL/min/ (58.99-99999)
[2018-02-06 02:27] LABS: UREA NITROGEN (BUN) 46 mg/dL (9-23)
[2018-02-06 02:33] LABS: POTASSIUM 5.4 mEq/L (3.7-5.4)
[2018-02-06 04:57] LABS: DEVICE NRBM; FI02 100 %; O2 FLOW 15 L/MIN; SITE LR; TOTAL RESP RATE 22 resp/min
[2018-02-06 04:59] LABS: CARBOXY HGB 3.7 % (0-5); COMMENTS - BLOOD GASES C; METHEMOGLOBIN 0.2 % (0-1.5); O2 SATURATION (CALCULATED) 92.4 % (95-99); PCO2 62 mm Hg (35-45); PO2 83 mm Hg (80-100); pH 7.12 (7.35-7.45)
[2018-02-06 05:00] LABS: BICARBONATE 20.2 mEq/L (22-26)
[2018-02-06 05:49] LABS: HEMATOCRIT 46.3 % (38.0-50.0); MCH 23.6 PG (29.0-34.0); MCHC 29.6 G/DL (30.0-36.0); MCV 79.8 FL (86-99); NRBC (%) 0.1 /100 WBC (0-0); PLATELET COUNT 665 K/uL (156-360); RBC DIS.WIDTH-CV 19.6 % (11.8-14.6); RBC DIS.WIDTH-SD 52.4 % (39-53); WHITE BLOOD COUNT 21.2 K/uL (4.1-10.2)
[2018-02-06 05:50] LABS: HEMOGLOBIN 13.7 G/DL (12.5-16.6)
[2018-02-06 06:18] LABS: ALBUMIN 3.5 G/DL (3.2-4.8); ALKALINE PHOSPHATASE 168 IU/L (3-129); CHLORIDE 98 MEQ/L (99-109); CREATININE 1.9 MG/DL (0.6-1.3); DIRECT BILIRUBIN 0.4 mg/dL (0.0-0.3); GFR ESTIMATE (CALCULATED) 38 mL/min/ (58.99-99999); GLUCOSE 108 mg/dL (70-99); TOTAL PROTEIN 7.7 G/DL (6.4-8.3); UREA NITROGEN (BUN) 52 mg/dL (9-23)
[2018-02-06 06:20] LABS: SODIUM 131 MEQ/L (136-147)
[2018-02-06 06:36] LABS: ALT (GPT) 581 IU/L (3-49)
[2018-02-06 12:40] LABS: BASOPHIL (%) 0.6 % (0-1); BASOPHIL COUNT 0.1 K/uL (0-0.1); EOSINOPHIL (%) 0 % (0-5); HEMATOCRIT 41.7 % (38.0-50.0); HEMOGLOBIN 12.5 G/DL (12.5-16.6); LYMPHOCYTE (%) 6.9 % (15-42); LYMPHOCYTE COUNT 1.3 K/uL (1.0-2.8); MCH 23.5 PG (29.0-34.0); MCV 78.4 FL (86-99); MONOCYTE (%) 5.4 % (3-12); NEUTROPHIL (%) 84.1 % (45-76); NEUTROPHIL COUNT 15.9 K/uL (1.8-6.4); PLATELET COUNT 514 K/uL (156-360); RBC DIS.WIDTH-CV 18.9 % (11.8-14.6); RBC DIS.WIDTH-SD 50.6 % (39-53); RED BLOOD COUNT 5.32 M/uL (4.00-5.50); WHITE BLOOD COUNT 18.8 K/uL (4.1-10.2)
[2018-02-06 13:34] LABS: HIGH-SENS C-REACTIVE PROTEIN > 8.00 MG/DL (0.02-0.20)
[2018-02-06 13:35] LABS: ALBUMIN 3.1 G/DL (3.2-4.8); ALKALINE PHOSPHATASE 168 IU/L (3-129); ALT (GPT) 665 IU/L (3-49); AST (GOT) 716 IU/L (2-34); CHLORIDE 94 MEQ/L (99-109); CREATININE 1.9 MG/DL (0.6-1.3); GFR ESTIMATE (CALCULATED) 38 mL/min/ (58.99-99999); GLUCOSE 238 mg/dL (70-99); SODIUM 132 MEQ/L (136-147); TOTAL PROTEIN 6.9 G/DL (6.4-8.3); UREA NITROGEN (BUN) 55 mg/dL (9-23)
[2018-02-06 14:16] LABS: COMMENTS - BLOOD GASES A+C+; DEVICE NC; O2 FLOW 4 L/MIN; PCO2 50 mm Hg (35-45); SITE LR; TOTAL RESP RATE 15 resp/min; pH 7.34 (7.35-7.45)
[2018-02-06 14:17] LABS: BASE EXCESS 0.5 mEq/L (-3 to +3); CARBOXY HGB 3.7 % (0-5); METHEMOGLOBIN 0.5 % (0-1.5)
[2018-02-06 15:53] LABS: DIGOXIN 8.8 ng/mL (0.8-2.0)
[2018-02-06 22:18] LABS: CHLORIDE 97 mEq/L (99-109); SODIUM 136 mEq/L (136-147)
[2018-02-06 22:20] LABS: GLUCOSE 210 mg/dL (70-99)
[2018-02-06 22:24] LABS: CREATININE 2.3 mg/dL (0.6-1.3); GFR ESTIMATE (CALCULATED) 30 mL/min/ (58.99-99999)
[2018-02-06 22:25] LABS: UREA NITROGEN (BUN) 56 mg/dL (9-23)
[2018-02-07] VITALS (21 sets, daily range): BP systolic 106–134; BP diastolic 55–77
[2018-02-07 06:04] LABS: CHLORIDE 96 MEQ/L (99-109); CREATININE 1.9 MG/DL (0.6-1.3); GFR ESTIMATE (CALCULATED) 38 mL/min/ (58.99-99999); GLUCOSE 170 mg/dL (70-99); POTASSIUM 4.9 MEQ/L (3.7-5.4); SODIUM 138 MEQ/L (136-147); UREA NITROGEN (BUN) 53 mg/dL (9-23)
[2018-02-07 14:17] LABS: UR CREATININE CONCENTRATION 75.6 MG/DL
[2018-02-08] VITALS (14 sets, daily range): BP systolic 99–137; BP diastolic 51–82
[2018-02-08 06:54] LABS: CHLORIDE 99 MEQ/L (99-109); SODIUM 141 MEQ/L (136-147); UREA NITROGEN (BUN) 34 mg/dL (9-23)
[2018-02-08 07:13] LABS: CREATININE 1.2 MG/DL (0.6-1.3); GFR ESTIMATE (CALCULATED) > 59 mL/min/ (58.99-99999); GLUCOSE 103 mg/dL (70-99); POTASSIUM 3.6 MEQ/L (3.7-5.4)
[2018-02-08 12:03] LABS: INTER. NORMALIZED RATIO 1.6
[2018-02-08 18:11] LABS: INTER. NORMALIZED RATIO 1.6
[2018-02-08 18:14] LABS: PTT 29.7 SEC (25-37)
[2018-02-09 03:20] VITALS: BP 135/69
[2018-02-09 06:19] LABS: CHLORIDE 97 MEQ/L (99-109); CREATININE 1.1 MG/DL (0.6-1.3); GFR ESTIMATE (CALCULATED) > 59 mL/min/ (58.99-99999); POTASSIUM 3.6 MEQ/L (3.7-5.4); SODIUM 142 MEQ/L (136-147); UREA NITROGEN (BUN) 27 mg/dL (9-23)
[2018-02-09 06:20] LABS: GLUCOSE 72 mg/dL (70-99)
[2018-02-09 07:05] VITALS: BP 140/74
[2018-02-09] MEDS ORDERED: NICOTINE PATCH1 EACH TD (11:13)
[2018-02-09] MEDS ORDERED: AUGMENTIN875 MG PO (11:20)
== END 2018-02-09 12:39 | disposition home or self-care (01) | DRG 308 ==
LOC: EME 09:25 → ENRESERV 12:50 → 4WEST 12:56 → EDOF 12:56 → ENRESERV 13:04 → 4EAST 14:03 → 4WEST 23:41 → ENRESERV 23:41 → CANRESERV 23:44 → ENRESERV 23:46 → 4WEST 23:47 → ENRESERV 02-08 17:37 → 4EAST 02-08 19:04 → ENPENDDIS 02-09 → 4EAST 02-09 12:39
PROVIDERS: Emergency Medicine; Hospitalist; Internal Medicine; Internal Medicine Cardiovascular Disease; Surgery
PROC: 5A1213Z Performance of Cardiac Pacing, Intermittent (ICD-10-PCS; principal; 2018-02-06)
DX: I48.1 Persistent atrial fibrillation (principal); I49.5 Sick sinus syndrome; I48.2 Chronic atrial fibrillation; I48.92 Unspecified atrial flutter; N17.9 Acute kidney failure, unspecified; E87.5 Hyperkalemia; T46.4X5A Adverse effect of angiotensin-converting-enzyme inhibitors, initial encounter; I44.2 Atrioventricular block, complete; T46.0X5A Adverse effect of cardiac-stimulant glycosides and drugs of similar action, initial encounter; I11.0 Hypertensive heart disease with heart failure; I50.43 Acute on chronic combined systolic (congestive) and diastolic (congestive) heart failure; I50.82 Biventricular heart failure; J18.9 Pneumonia, unspecified organism; J44.0 Chronic obstructive pulmonary disease with (acute) lower respiratory infection; Z66 Do not resuscitate; J96.10 Chronic respiratory failure, unspecified whether with hypoxia or hypercapnia; Z99.81 Dependence on supplemental oxygen; E11.51 Type 2 diabetes mellitus with diabetic peripheral angiopathy without gangrene; E87.2 Acidosis; I95.9 Hypotension, unspecified; I42.0 Dilated cardiomyopathy; R79.1 Abnormal coagulation profile; T45.515A Adverse effect of anticoagulants, initial encounter; K70.40 Alcoholic hepatic failure without coma; K70.30 Alcoholic cirrhosis of liver without ascites; I70.209 Unspecified atherosclerosis of native arteries of extremities, unspecified extremity; I25.5 Ischemic cardiomyopathy; E66.9 Obesity, unspecified; Z68.34 Body mass index [BMI] 34.0-34.9, adult; E78.5 Hyperlipidemia, unspecified; F10.10 Alcohol abuse, uncomplicated; F17.210 Nicotine dependence, cigarettes, uncomplicated; Z79.84 Long term (current) use of oral hypoglycemic drugs
CPT/HCPCS: 36600; 71045; 76705; 80048; 80048 91; 80053; 80076; 80162; 82140; 82248; 82436; 82570; 82948; 83605; 83735; 83880; 84133; 84145 90; 84300; 84484; 85025; 85027; 85610; 85730; 86141; 87040; 87086; 87641; 93005; 93306; 94640; 94799; 99281; 99285; C1894; J0456; J0461; J0696; J1160; J1162; J1265; J1815; J1940; J2250; J2405; J2543; J3010; J7030; J7040; J7050; J7070